=== PATIENT | female | born 1995 | race Caucasian/White ===

== ENCOUNTER 2018-02-09 18:02 | Emergency (ER) | payer OTHER ==
[2018-02-09 18:23] VITALS: BP 125/80; PULSE 104; RESP 20; TEMP 99.5
--- NOTE | 2018-02-09 19:10 | ED ---
ENT HPI - General Chief complaint: ENT Stated complaint: swollen tonsils Time Seen by Provider: 02/09/18 19:01 Source: patient, RN notes reviewed Mode of arrival: ambulatory Limitations: no limitations - History of Present Illness Initial comments: 22-year-old female presents to emergency Department with chief complaint of swollen tonsils. Patient states started 2 days ago. Patient have low-grade temp 100.8 home. She has been altering Tylenol Motrin. She states that she noticed some pus on her tonsils. She's had no prior surgery. Denies any difficulty swallowing only pain. Denies headache, neck stiffness. She has no history of mono no fatigue no abdominal pain. - Related Data Previous Rx's Medication Instructions Recorded Amoxicillin 500 mg PO Q8H #30 capsule 02/09/18 Allergies Allergy/AdvReac Type Severity Reaction Status Date / Time bee venom protein (honey bee) Allergy Rash/Hives Verified 02/09/18 18:23 hydrocodone [From [place]] AdvReac Nausea & Verified 02/09/18 18:23 Vomiting Review of Systems ROS Statement: Those systems with pertinent positive or pertinent negative responses have been documented in the HPI. ROS Other: All systems not noted in ROS Statement are negative. Past Medical History Past Medical History: No Reported History History of Any Multi-Drug Resistant Organisms: None Reported Past Surgical History: No Surgical Hx Reported Past Psychological History: ADD/ADHD Smoking Status: Never smoker Past Alcohol Use History: None Reported Past Drug Use History: None Reported General Exam Limitations: no limitations General appearance: alert, in no apparent distress Head exam: Present: atraumatic, normocephalic, normal inspection Eye exam: Present: normal appearance, PERRL, EOMI. Absent: scleral icterus, conjunctival injection, periorbital swelling ENT exam: Present: mucous membranes moist, TM's normal bilaterally. Absent: normal exam, normal oropharynx (Numbness tonsils, mild erythema) Neck exam: Present: normal inspection, full ROM, lymphadenopathy. Absent: tenderness, meningismus Respiratory exam: Present: normal lung sounds bilaterally. Absent: respiratory distress, wheezes, rales, rhonchi, stridor Cardiovascular Exam: Present: regular rate, normal rhythm, normal heart sounds. Absent: systolic murmur, diastolic murmur, rubs, gallop, clicks Course Vital Signs 02/09/18 18:21 Temperature 99.5 F Pulse Rate 104 H Respiratory 20 Rate Blood Pressure 125/80 O2 Sat by Pulse 99 Oximetry Medical Decision Making - Medical Decision Making 22-year-old female presented from it for swollen tonsils, sore throat. Patient we treated for strep pharyngitis. Patient we discharged on amoxicillin return parameters were discussed. Disposition Clinical Impression: Acute pharyngitis, Acute tonsillitis Disposition: HOME SELF-CARE Condition: Stable Instructions: Pharyngitis (ED) Additional Instructions: Please return to the Emergency Department if symptoms worsen or any other concerns. Prescriptions: Amoxicillin 500 mg PO Q8H #30 capsule Is patient prescribed a controlled substance at d/c from ED?: No Referrals: Waldo Pulido III, MD [Primary Care Provider] - 1-2 days Time of Disposition: 19:10
== END 2018-02-09 19:18 | disposition home or self-care (01) ==
LOC: EC 18:02
DX: J03.90 Acute tonsillitis, unspecified (principal); Z88.5 Allergy status to narcotic agent; Z91.030 Bee allergy status
CPT/HCPCS: 99283

== ENCOUNTER 2018-04-29 10:05 | Emergency (ER) | payer OTHER ==
[2018-04-29 10:13] VITALS: BP 121/80; PULSE 89; RESP 16; TEMP 98.2
--- NOTE | 2018-04-29 10:24 | ED ---
General Adult HPI - General Chief complaint: ENT Stated complaint: sore throat Time Seen by Provider: 04/29/18 10:15 Source: patient, RN notes reviewed, old records reviewed Mode of arrival: ambulatory Limitations: no limitations - History of Present Illness Initial comments: 23-year-old female presents for evaluation of sore throat. Patient states she woke this morning with sore throat and nasal congestion. Patient is otherwise healthy, no chronic medical problems. Denies fever or chills. Denies cough. Denies chest pain or dyspnea. Patient denies ear pain. She does report some pain with swallowing. - Related Data Home Medications Medication Instructions Recorded Confirmed Dextroamphetamine/Amphetamine 30 mg PO QAM 02/09/18 04/29/18 [Adderall Xr] Ferrous Sulfate [Feosol] 325 mg PO DAILY 02/09/18 04/29/18 Norgestimate-Ethinyl Estradiol 1 tab PO DAILY 02/09/18 04/29/18 [Sprintec 28 Day Tablet] Previous Rx's Medication Instructions Recorded Ibuprofen [Motrin] 600 mg PO Q8HR PRN #24 tab 04/29/18 Allergies Allergy/AdvReac Type Severity Reaction Status Date / Time bee venom protein (honey bee) Allergy Rash/Hives Verified 04/29/18 10:13 hydrocodone [From [place]] AdvReac Nausea & Verified 04/29/18 10:13 Vomiting Review of Systems ROS Statement: Those systems with pertinent positive or pertinent negative responses have been documented in the HPI. ROS Other: All systems not noted in ROS Statement are negative. Past Medical History Past Medical History: No Reported History History of Any Multi-Drug Resistant Organisms: None Reported Past Surgical History: No Surgical Hx Reported Past Psychological History: ADD/ADHD Smoking Status: Never smoker Past Alcohol Use History: None Reported Past Drug Use History: None Reported General Exam Limitations: no limitations General appearance: alert, in no apparent distress Head exam: Present: atraumatic, normocephalic Eye exam: Present: normal appearance, PERRL ENT exam: Present: other (Pharyngeal erythema, no tonsillar swelling or exudate , no petechiae) Neck exam: Present: normal inspection. Absent: tenderness, meningismus Respiratory exam: Present: normal lung sounds bilaterally. Absent: respiratory distress, wheezes, rales, rhonchi Cardiovascular Exam: Present: regular rate, bradycardia GI/Abdominal exam: Present: soft. Absent: distended, tenderness, guarding Course Vital Signs 04/29/18 10:09 Temperature 98.2 F Pulse Rate 89 Respiratory 16 Rate Blood Pressure 121/80 O2 Sat by Pulse 99 Oximetry Medical Decision Making - Medical Decision Making 23-year-old female presenting with sore throat and nasal congestion. On exam patient has [place] and erythema, no tonsillar swelling or exudate. Rapid strep is obtained, this is negative. Patient will be discharged with symptomatic treatment. She is encouraged to gargle salt water, take Motrin for pain. Follow-up with primary care physician for reevaluation. Disposition Clinical Impression: Acute viral pharyngitis Disposition: HOME SELF-CARE Condition: Good Instructions: Pharyngitis (ED) Prescriptions: Ibuprofen [Motrin] 600 mg PO Q8HR PRN #24 tab PRN Reason: Pain Is patient prescribed a controlled substance at d/c from ED?: No Referrals: Waldo Pulido III, MD [Primary Care Provider] - 1-2 days Time of Disposition: 10:24
== END 2018-04-29 10:50 | disposition home or self-care (01) ==
LOC: EC 10:05
DX: J02.8 Acute pharyngitis due to other specified organisms (principal); F90.9 Attention-deficit hyperactivity disorder, unspecified type; Z79.899 Other long term (current) drug therapy; Z88.8 Allergy status to other drugs, medicaments and biological substances; Z91.030 Bee allergy status
CPT/HCPCS: 87081; 87430; 99283

== ENCOUNTER 2018-06-15 21:26 | Emergency (ER) | payer OTHER ==
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
[2018-06-15 22:39] LABS: Amphetamine Screen,Urine Not Detected (NotDetected); Barbiturate Screen,Urine Not Detected (NotDetected); Benzodiazepines Screen,Urine Not Detected (NotDetected); Cocaine Screen,Urine Not Detected (NotDetected); Methadone Screen, Urine Not Detected (NotDetected); Opiate Screen,Urine Not Detected (NotDetected); Oxycodone Screen, Urine Not Detected (NotDetected); Phencyclidine Screen,Urine Not Detected (NotDetected); Tricyclic Antidepressant,Urine Not Detected (NotDetected); Urn Cannabinoid Scrn Not Detected (NotDetected)
[2018-06-16 00:18] LABS: Basophils % (A) 1 %; Eosinophils # (A) 0.2 k/uL (0-0.7); Eosinophils % (A) 4 %; HCT 34.4 % (34.0-46.0); Lymphocytes # (A) 1.7 k/uL (1.0-4.8); Lymphocytes % (A) 36 %; MCH 27.1 pg (25.0-35.0); MCV 84.8 fL (80.0-100.0); Mean Platelet Volume 7.2; Monocytes # (A) 0.4 k/uL (0-1.0); Monocytes % (A) 9 %; Neutrophils # (A) 2.3 k/uL (1.3-7.7); Neutrophils % (A) 48 %; Platelet Count 265 k/uL (150-450); RBC 4.06 m/uL (3.80-5.40); RDW 14.7 % (11.5-15.5); WBC 4.8 k/uL (3.8-10.6)
[2018-06-16 00:33] LABS: ALT 19 U/L (9-52); AST 23 U/L (14-36); Albumin 3.3 g/dL (3.5-5.0); Alkaline Phosphatase 66 U/L (38-126); Anion Gap 5 mmol/L; Blood Urea Nitrogen 9 mg/dL (7-17); Calcium 8.9 mg/dL (8.4-10.2); Carbon Dioxide 24 mmol/L (22-30); Chloride 109 mmol/L (98-107); Glucose 91 mg/dL (74-99); Potassium 4.4 mmol/L (3.5-5.1); Sodium 138 mmol/L (137-145); Total Bilirubin 0.2 mg/dL (0.2-1.3); Total Protein 6.5 g/dL (6.3-8.2)
[2018-06-16 01:48] VITALS: BP 124/82; PULSE 56; RESP 16; TEMP 98.4
== END 2018-06-16 03:10 ==
LOC: EC 21:26
DX: R45.851 Suicidal ideations (principal); F32.9 Major depressive disorder, single episode, unspecified; F41.9 Anxiety disorder, unspecified; F90.9 Attention-deficit hyperactivity disorder, unspecified type; Z79.3 Long term (current) use of hormonal contraceptives; Z79.899 Other long term (current) drug therapy; Z91.030 Bee allergy status; Z88.5 Allergy status to narcotic agent
CPT/HCPCS: 36415; 80053; 80306; 81025; 85025; 99285

== ENCOUNTER 2018-08-25 17:51 | Emergency (ER) | payer OTHER ==
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
[2018-08-25 19:22] LABS: Amphetamine Screen,Urine Not Detected (NotDetected); Barbiturate Screen,Urine Not Detected (NotDetected); Benzodiazepines Screen,Urine Detected (NotDetected); Cocaine Screen,Urine Not Detected (NotDetected); Methadone Screen, Urine Not Detected (NotDetected); Opiate Screen,Urine Not Detected (NotDetected); Oxycodone Screen, Urine Not Detected (NotDetected); Phencyclidine Screen,Urine Not Detected (NotDetected); Tricyclic Antidepressant,Urine Not Detected (NotDetected); Urn Cannabinoid Scrn Not Detected (NotDetected)
[2018-08-25 22:52] VITALS: BP 156/82; PULSE 103; RESP 18; TEMP 97.8
== END 2018-08-25 22:52 | disposition home or self-care (01) ==
LOC: EC 17:51
DX: F32.9 Major depressive disorder, single episode, unspecified (principal); S51.812A Laceration without foreign body of left forearm, initial encounter; S11.91XA Laceration without foreign body of unspecified part of neck, initial encounter; F41.0 Panic disorder [episodic paroxysmal anxiety]; F90.9 Attention-deficit hyperactivity disorder, unspecified type; Z88.5 Allergy status to narcotic agent; Z91.018 Allergy to other foods; Z79.899 Other long term (current) drug therapy; X78.0XXA Intentional self-harm by sharp glass, initial encounter
CPT/HCPCS: 80306; 81025; 82075; 99285

== ENCOUNTER → 2019-01-30 | Outpatient (CLI) | payer OTHER ==
[2019-01-30 13:10] VITALS: BP 125/88; PULSE 73; RESP 16; TEMP 98.3; BMI 35.5
--- NOTE | 2019-01-30 14:32 | P.HPOB ---
History of Present Illness H&P Date: 01/30/19 Chief Complaint: Here for her routine gynecologic exam and Depo-Provera inje ctions. This is a 23-year-old with an LMP of June 2018. The patient started Depo-Provera for control after she had several episodes of forgetting her control pills. Her 1st Depo-Provera injection was in June 2018. Her 2nd one was in September of this year. She is due for her 3rd injection. The patient has been amenorrheic since starting Depo-Provera. She would like to continue Depo-Provera for control. She is without gynecologic complaints. She is currently not seeing anybody at this time. She has had 5 sexual partners in her lifetime. Review of Systems The patient has gained 19 pounds over the last year. She denies respiratory, cardiac, or G.I. problems. Past Medical History Past Medical History: No Reported History Additional Past Medical History / Comment(s): Scoliosis. PAST ENVIRONMENTAL PROGRAM MANAGER HISTORY: She has no history of STDs. History of Any Multi-Drug Resistant Organisms: None Reported Past Surgical History: No Surgical Hx Reported Past Psychological History: ADD/ADHD, Anxiety, Depression, Panic Disorder Smoking Status: Current every day smoker (Less than one pack per day) Past Alcohol Use History: None Reported Past Drug Use History: None Reported Additional History: She has had 5 sexual partners in her lifetime. She is contemplating going back to school. She currently is unemployed. - Past Family History Mother Family Medical History: Diabetes Mellitus Additional Family Medical History / Comment(s): Grandmother had liver cancer. Sister(s) Family Medical History: Cancer, Diabetes Mellitus Additional Family Medical History / Comment(s): Cervical cancer. Father Family Medical History: Unable to Obtain Medications and Allergies Home Medications Medication Instructions Recorded Confirmed Type Medroxyprogesterone Acetate 150 mg IM DIRECTED 01/30/19 01/30/19 History [Depo-Provera] Allergies Allergy/AdvReac Type Severity Reaction Status Date / Time bee venom protein (honey bee) Allergy Rash/Hives Verified 01/30/19 13:10 hydrocodone [From [place]] AdvReac Nausea & Verified 01/30/19 13:10 Vomiting Exam Vital Signs Temp Pulse Resp BP Pulse Ox 01/30/19 13:01 98.3 F 73 16 125/88 98 Intake and Output 01/29/19 01/30/19 01/30/19 22:59 06:59 14:59 Other: Weight 93.894 kg Height 5'4", weight 207 pounds, BMI 35.5. This is a well-developed well-nourished heavyset white female who is alert and oriented times 3 in no acute distress. HEENT: Within normal limits. NECK: Supple without mass or thyromegaly. CHEST AND LUNGS: Clear to auscultation. HEART: Regular rate and rhythm. BREASTS: Are without mass or discharge. AXILLARY EXAM: Negative for adenopathy. BACK: Negative for CVA tenderness. ABDOMEN: Soft, mildly obese, nontender, without palpable masses. PELVIC EXAM: Normal external genitalia. Cervix and vagina appear normal. There is no unusual discharge. The cervix was slightly friable upon doing the Pap smear. There is no evidence of prolapse. The uterus is midposition, nongravid size and nontender. There are no palpable adnexal masses or tenderness. RECTAL EXAM: deferred. EXTREMITIES: Nontender. IMPRESSION: 1. 23-year-old female with normal gynecologic exam. The patient has been doing well on Depo-Provera injections which were started in June 2018. PLAN: 1. Pap smear was performed. 2. Self breast awareness was discussed with the patient. 3. STD prevention was discussed. I have stressed the importance of limiting sexual partners. I've also recommended condoms if she is sexually active. 4. I have recommended HPV vaccination. Have recommended that she had this done at [facility]. 5. We have discussed various -control options. We have discussed possible side effects and adverse effects with Depo-Provera including weakening of the bones with longer term use. I have recommended that she consider other options because of this. She would like to continue Depo-Provera injections at this time. The electronic prescription for Depo-Provera 150 mg IM to 3 months will be sent to [facility] pharmacy on . She will make an appointment for tomorrow to be given the injection. Since the injection was technically due in December, I have recommended that she is a backup method such as condoms for at least 3 weeks after the injection. 6. GC and chlamydia screening has been obtained from the cervix. 7.She was advised to return in one year for her annual well woman exam.
[2019-01-31 13:51] LABS: C. trachomatis,PCR Negative (Neg,Equiv); Chlamydia trachomatis Source Cervix; N. gonorrhoeae,PCR Negative (Neg,Equiv); Neisseria Source Cervix
== END | disposition home or self-care (01) ==
LOC: WWCWWP 12:37
PROVIDERS: ATTEND Obstetrics & Gynecology
DX: Z01.419 Encounter for gynecological examination (general) (routine) without abnormal findings (principal)
CPT/HCPCS: 87491; 87591

== ENCOUNTER → 2019-01-31 | Outpatient (CLI) | payer OTHER ==
[2019-01-31 13:05] VITALS: BP 113/72; PULSE 69; RESP 16; TEMP 98.5; BMI 35.5
--- NOTE | 2019-01-31 13:23 | P.PN ---
Progress Note - Text Progress Note Date: 01/31/19 The patient is here for her Depo-Provera injection. This will be her 3rd one. This is the 1st one given here. Blood pressure: 113/72, height 5'4", weight 207 pounds, temperature 98.5, pulse 69, respiratory rate WNL, pulse oximeter 97% This is a well-developed heavyset white female who is alert and oriented times 3 in no acute distress. Medroxyprogesterone acetate injectable suspension 150 mg/mL lot number [id number] expiration: 02/2021 serial number: [id number] A 1 mL intramuscular injection was made into the right deltoid muscle. Impression: Depo-Provera injection(#3) administration Plan: She will return in 3 months for her next Depo-Provera injection. She will use condoms as a backup method for at least 3 weeks since this injection was approximately 2 weeks late. Osteoporosis prevention was discussed. I have stressed the importance of adequate calcium, vitamin D and regular exercise. Recommended amounts of calcium and vitamin D were also discussed. I have also recommended that she consider an alternative method of control since long-term use with Depo- Provera can lead to weaker bones.
== END ==
LOC: WWCWWP 12:56
PROVIDERS: ATTEND Obstetrics & Gynecology
DX: Z53.9 Procedure and treatment not carried out, unspecified reason (principal)